=== PATIENT | female | born 2000 | race Caucasian/White ===

== ENCOUNTER 2021-06-27 19:00 | Observation (INO) | payer BC | END 2021-06-27 20:30 | disposition home or self-care (01) | LOC: SPU 19:00 | PROVIDERS: ADMIT Obstetrics & Gynecology; ATTEND Obstetrics & Gynecology | DX: O26.892 Other specified pregnancy related conditions, second trimester (principal); R10.9 Unspecified abdominal pain; Z3A.23 23 weeks gestation of pregnancy | CPT/HCPCS: 81002; G0378; G0379 ==

== ENCOUNTER 2021-11-03 05:30 | Emergency (ER) | payer BC | END 2021-11-03 10:00 | disposition home or self-care (01) | LOC: SED 05:30 | DX: R10.9 Unspecified abdominal pain (principal); R11.2 Nausea with vomiting, unspecified | CPT/HCPCS: 99281 ==